=== PATIENT | female | born 1945 | race Hispanic/Latino ===

== ENCOUNTER → 2018-06-03 | Outpatient (CLI) | payer MEDICARE ==
--- NOTE | 2018-06-03 11:24 | Diagnostic Imaging Report ---
EXAM: BONE MINERAL DENSITY HISTORY: Bone mineralization evaluation COMPARISON: None DISCUSSION: Evaluation of the left hip and lumbar spine was performed utilizing DEXA Hologic bone densitometer. The study is technically adequate. Left hip femoral neck bone mineral density: 0.66 g/cm2, T-score is -1.8, Z-score is 0.0. Left hip total bone mineral density: 0.74 g/cm2, T-score is -1.7, Z-score is -0.1. Lumbar spine total bone mineral density: 0.96 gm/cm2, T-score is -0.8, Z-score is 1.4. 10 year fracture risk for major osteoporotic fracture 15% and hip fracture 6.7%. Impression: Bone mineralization by WHO Classification is low bone mass/osteopenia, the fracture risk is increased. Signed by: Dr. Yong Irving M.D. on 06/03/2018 11:20 AM
== END ==
LOC: DX 10:14
PROVIDERS: ATTEND Internal Medicine
DX: M81.0 Age-related osteoporosis without current pathological fracture (principal)
CPT/HCPCS: 77080

== ENCOUNTER → 2019-02-06 | Outpatient (CLI) | payer MEDICARE ==
--- NOTE | 2019-02-06 13:50 | Diagnostic Imaging Report ---
EXAM: CT Chest 02/06/2019 12:22 PM INDICATION: Shortness of breath COMPARISON: None TECHNIQUE: Chest was scanned utilizing a multidetector helical scanner from the lung apex through the level of the adrenal glands without administration of IV contrast. Coronal and sagittal reformations were obtained. Routine protocol was performed. Technique manipulation was utilized to maintain the lowest dose possible to the patient. IV CONTRAST: None RADIATION DOSE: Total DLP: 273.02 mGy*cm Estimated effective dose: (DLP x 0.014 x size factor) mSv COMPLICATIONS: None FINDINGS: LINES/ TUBES: None. LUNGS AND AIRWAYS: Diffuse emphysematous changes. There is a 12 mm left lower lobe pulmonary cyst. Smaller cyst is seen in the right lower lobe parenchyma. Scarring in the right middle lobe and lingula on the left. No pulmonary nodules or masses. Airways are normal. PLEURA: The pleural spaces are clear. HEART AND MEDIASTINUM: The thyroid gland is normal. Minimal calcification within the aorta and coronary arteries is noted. Ascending aorta measures 3.6 cm. Prominent pretracheal lymph node the middle mediastinum just at the tracheal bifurcation measures 1.4 cm but has a normal central fat and likely is nonpathologic. The heart is normal in size.. There is no pericardial effusion. UPPER ABDOMEN: Fullness in the region of the left adrenal gland is nonspecific. BONES: Mild degenerative spurring of the spine. SOFT TISSUES: Unremarkable. IMPRESSION: Diffuse emphysematous changes throughout the lungs without evidence of a nodule or mass. Signed by: Dr. Dillan Juarez DO on 02/06/2019 1:47 PM
== END ==
LOC: CT 12:05
PROVIDERS: ATTEND Internal Medicine
DX: R06.02 Shortness of breath (principal); Z72.0 Tobacco use
CPT/HCPCS: 71250